=== PATIENT | female | born 2000 | race Caucasian/White ===

== ENCOUNTER 2019-12-22 09:21 | Emergency (ER) | payer OTHER, SELFPAY ==
[2019-12-22 09:28] VITALS: BP 140/84; PULSE 93; RESP 18; TEMP 37.2; O2SAT 100
--- NOTE | 2019-12-22 09:33 | ED.GENADULT ---
HPI - General Adult General Chief complaint: Urogenital-Female Stated complaint: Bladder infection Time Seen by Provider: 12/22/19 09:33 Source: patient Mode of arrival: ambulatory Limitations: no limitations History of Present Illness HPI narrative: 19-year-old female patient presents to the [facility] with complaints of urinary symptoms that started last night. Patient states she has had increase in urgency, frequency pain with urination. Patient states she has a little lower abdominal cramping with a little bit of low back pain. Denies any fevers, body aches or chills. Denies any nausea, vomiting or diarrhea. Patient denies any history of or breast-feeding. Patient states that she did start her. Yesterday and is currently on her period right now. Related Data Allergies Allergy/AdvReac Type Severity Reaction Status Date / Time No Known Allergies Allergy Verified 12/22/19 09:33 Review of Systems Review of Systems: Narrative: CONSTITUTIONAL: Denies fever, chills, or sweats. EYES: Denies visual changes, redness, or discharge. ENT: Denies rhinorrhea, congestion, sore throat, or otalgia. CARDIOVASCULAR: Denies chest pain, palpitations, or edema. RESPIRATORY: Denies cough or dyspnea. GASTROINTESTINAL: Denies abdominal pain, nausea, vomiting, or diarrhea. GENITOURINARY: Denies dysuria or hematuria. Positive pain with urination, urgency and frequency that started yesterday. SKIN: Denies rash or itching. MUSCULOSKELETAL: Positive left back pain, denies joint pain, or myalgia. NEUROLOGIC: Denies headache, numbness, or weakness. PSYCHIATRIC: Denies anxiety or depression. PMFSH Comments At the time of my signature I agree with nursing past medical history, surgical, social, and family history. There is no relevant family history pertinent to the presenting complaint. Exam Narrative: Exam Narrative: GENERAL: Well-appearing, well-nourished, and in no acute distress. HEAD: Normocephalic, atraumatic. EYES: PERRLA and EOMI. ENT: Nares clear, no rhinorrhea or epistaxis. Mucous membranes moist. NECK: Supple. No lymphadenopathy CHEST: Clear to auscultation. No respiratory distress. HEART: Regular rate and rhythm. No murmur heard. Normal peripheral pulses. ABDOMEN: Soft, nontender, nondistended, normal active bowel sounds. Slight right-sided CVA tenderness on percussion. EXTREMITIES: Normal range of motion. No edema. SKIN: Warm, dry, no rash. NEURO: No focal deficits. Alert and oriented x3. Course Vital Signs Vital signs: Vital Signs Temperature 37.2 C 12/22/19 09:28 Pulse Rate 93 12/22/19 09:28 Respiratory Rate 18 12/22/19 09:28 Blood Pressure 140/84 12/22/19 09:28 Pulse Oximetry 100 12/22/19 09:28 Temperature 37.2 C 12/22/19 09:28 Pulse Rate 93 12/22/19 09:28 Respiratory Rate 18 12/22/19 09:28 Blood Pressure 140/84 12/22/19 09:28 Pulse Oximetry 100 12/22/19 09:28 Vital signs reviewed. The patient has been informed that they may have pre-hypertension or Hypertension based on a BP reading in the department. I recommend that the patient call the primary care provider listed on their discharge instructions or a physician of their choice this week to arrange follow up for further evaluation of possible pre-hypertension or Hypertension Medical Decision Making Differential Diagnosis Differential Diagnosis: Differential diagnosis: Uncomplicated lower UTI, uncomplicated UTI, pyelonephritis Discussed with patient that based on her symptoms as well as her urine dip I do believe most likely she does have a urinary tract infection. Discussed with patient that we will discharge her home with an antibiotic as well as some Pyridium to help with the urinary pain. Discussed with patient that she should increase her water intake and take Tylenol and ibuprofen also as needed. Discussed with patient if she has worsening symptoms such as fevers, body aches, increasing back pain or any other concernin
== END 2019-12-22 09:49 | disposition home or self-care (01) ==
PROVIDERS: Emergency Provider Nurse Practitioner Family
DX: N30.00 Acute cystitis without hematuria (principal)
CPT/HCPCS: 81003; 87077; 87086; 87088; 87186; 99213; G0463